=== PATIENT | female | born 1975 | race Caucasian/White ===

== ENCOUNTER 2022-07-12 12:37 | Inpatient (IN) | payer SELFPAY ==
[2022-07-06 14:37] LABS: Hematocrit 48.7 % (37-47); Hemoglobin 15.6 g/dL (12.0-15.0); Mean Corpuscular Hgb 29.7 pg (27.0-32.0); Mean Corpuscular Volume 92.6 fL (81-99); Mean Platelet Vol. 9.5 fl (6.2-12.0); Platelet Count 322 K/mm3 (150-450); RBC Distribution Width CV 13.6 % (11.6-14.6); RBC Distribution Width SD 46.2 fl (35.1-43.9); Red Blood Count 5.26 M/mm3 (4.2-5.4); White Blood Count 8.1 K/mm3 (4.4-11.0)
[2022-07-06 15:00] LABS: Magnesium 1.9 mg/dL (1.6-2.6)
[2022-07-12] VITALS (16 sets, daily range): BP systolic 106–127; BP diastolic 58–84; PULSE 57–95; RESP 14–18; TEMP 36.1–37.2; O2SAT 95–100; BMI 24.5
[2022-07-12 06:03] LABS: Internal QC Validated? YES +Cl - CLEAR BKGD; Pregnancy, Urine Negative Negative
[2022-07-12] MEDS: Lactated Ringers 1,000 ML 40 ML IV (06:17)
[2022-07-12] MEDS: Gabapentin 600 MG Tablet PO (06:17)
[2022-07-12] MEDS: Magnesium 2 GM for ERAS IV (06:17)
[2022-07-12] MEDS: Acetaminophen 500 MG Tablet 1000 MG PO ×3 (06:18→17:49)
--- NOTE | 2022-07-12 06:34 | HP.PCM.OB_ITS ---
History and Physical Date of Admission: 07/12/22 Chief complaint: Leiomyomas History present illness: 47-year-old arrives for total abdominal hysterectomy bilateral salpingectomy for leiomyomas. No medical changes since last seen. All questions answered and consent signed. Obstetric history: G7, P3 with a history of 3 sections Past medical history: None Medications: None Allergies: No known drug allergies Past surgical history: section x3 Social history: Denies smoking, alcohol use, drug use Family history: Denies history DVT or PE Review of systems: Besides above pertinent positives a full review of systems was performed and found to be negative Physical exam: Vitals: Blood pressure 113/69 pulse 73 respiratory rate 16 temperature 97.3 ?F SPO2 100% on room air General: Normal-appearing no acute distress HEENT: Normocephalic/atraumatic no cervical lymphadenopathy Cardiac/respiratory: No use of accessory muscles, nonlabored breathing Abdomen: Soft, nontender, nondistended Extremities: No peripheral edema normal peripheral pulses Psych: Normal affect normal demeanor nonpressured speech Labs: Urine test negative Assessment plan: 47-year-old scheduled for total abdominal hysterectomy bilateral salpingectomy for leiomyomas. Patient understands risk of the procedure include but are not l imited to visceral or vascular injury, prolonged hospitalization, blood loss need for transfusion, reoperation. Patient understands increased risk with larger abdominal incision. Patient states understanding and wishes to proceed. All questions were answered and consent was signed.
[2022-07-12] MEDS: Insulin Lispro 100 UNIT/ML INSULN.PEN SC (06:43)
[2022-07-12 06:56] LABS: Bedside Glucose 233 mg/dL (74-106)
[2022-07-12] MEDS: Ondansetron 4 MG/2 ML Vial IV (07:30)
--- NOTE | 2022-07-12 07:30 | HYST_PTH ---
PATIENT: ADOLPH JANE LOC: [facility] U#:[id number] AGE/SX: 47/F ROOM: [facility] RE07/12/[address]: Dr. Dino Jane MD : 1975 BED: 1 DIS: 07/13/2022 SPEC #: [id number] RECD: 07/12/22 09:45 STATUS: WILL REQ #: [id number] LUPE: 07/12/22 07:[address]: Dino Jane DEPT: SURGICAL PATHOLOGY RECD BY: Sheridan Rosas ENTERED: 07/12/22 10:05 SP TYPE: HYSTERECT OTHR DR: Dr. Jaen Claude Hooker MD Tissues: Uterus, NOS Procedures: Surgery Specimen Level V HEADER OPERATION: ERAS, hysterectomy, MARGARET, salpingectomy PRE-OP DIAGNOSIS: Abnormal uterine bleeding, fibroids TISSUE SUBMITTED: Uterus and bilateral fallopian tubes MICROSCOPIC DIAGNOSIS Uterus, hysterectomy: Cervix ? nabothian cysts and mild chronic inflammation. Endometrium ? proliferative endometrium. Myometrium ? leiomyoma with degenerative change and focal acute inflammation. Ovary ? corpora albicantia. Fallopian tubes ? complete cross-sections of fallopian tubes. One fallopian tube with benign paratubal cysts. AM:adalid 07/13/2022 COMMENT Fallopian tubes have no pathologic change. MICROSCOPIC DESCRIPTION Slides are reviewed. GROSS DESCRIPTION Received in fixative is one container labeled with the patient's name and designated uterus. The specimen consists of a uterus received in two fragments. The presumed cervical portion measures 3.8 cm in length and 2.5 cm in diameter. The largest fragment measures 20.0 x 19.0 x 13.5 cm and weighs 2380 gm. Present free in the container is a fallopian tube with normal fimbriated end measuring 8.0 cm in length and 0.5 cm in diameter. A similar fallopian tube measuring 5.0 cm in length and 0.6 cm is also present in the container adjacent to the fimbrial end of this fallopian tube is a smooth, glistening cyst measuring 2.5 cm and containing clear fluid. The fallopian tubes are not designated. Serial sections reveal a lobulated white-collado, rubbery mass measuring 17.0 x 13.0 x 11.0 cm. Serial sections of this mass reveals rubbery cut surfaces in which there are foci of softening and hemorrhage. The endometrial cavity measures 4.0 x 3.0 cm and is triangular in appearance. The reddish-collado endometrium measures up to 0.1 cm in greatest dimension. The myometrium without mass measures up to 2.0 cm in average thickness. Attached to the uterus is a smooth, glistening, pink-yellow ovary measuring 2.8 x 1.0 x 1.0 cm. Serial sections do not reveal mass lesions. Video Technician sections are submitted in 12 cassettes as follows: 1 - cervix and endocervix, 2 - one fallopian tube, 3 - the other fallopian tube with paratubal cyst, 4??ovary, 5-7 - endometrium and adjacent myometrium, 8-12 - client relations representative sections of myometrial mass. / AM:adalid 07/12/2022 TC:1 CPT: 89881
[2022-07-12] MEDS: Cefazolin 2 GM in 0.9% Normal Saline 100 ML IV (07:38)
--- NOTE | 2022-07-12 09:49 | DCINST_ITS ---
Discharge Instructions Diet Discharge Diet: No restrictions Activity Discharge Activity: Return to Normal Activity, May Drive, May Shower and - (No tub baths for 2 weeks) May resume sexual activity in: 6-8 weeks Lifting Restrictions: No lifting over 25 pounds for 3 weeks Dressing / Incision Call your doctor if your incision/area has: Continuous Slow Oozing and Foul Smelling Discharge Call your doctor if you observe: Fever of 101 or Higher, Shortness of breath and Chest pain Follow Up Care Please Follow Up With: Dino Garvin MD When: 5 to 7 days postoperatively Test Results: Test results from this visit will be discussed in further detail at your follow- up appointment, if applicable. Discharge Plan Admission Attending Provider: Dino Garvin Primary Care Provider: Jean Claude Hooker Discharge Orders/Prescriptions Prescriptions: No Action Plexus 1 packet PO/SL DAILY Plexus Probiotic 1 cap PO/SL DAILY Super Food 1 packet PO/SL 1200 Referrals / Follow Up: Jean Claude Hooker MD [Primary Care Provider] - Disposition Disposition (needs filled in before D/C Order can be placed): Home, Self Care
--- NOTE | 2022-07-12 09:50 | PCM.OPRPT ---
Report of Operation Date of Procedure: 07/12/22 Pre-Operative Diagnosis: Leiomyoma Post-Operative Diagnosis: Leiomyoma Surgery/Procedure Performed:: Total abdominal hysterectomy right salpingo-oophorectomy left salpingectomy Description of Surgical Findings:: Surgeon: Dino Garvin MD Anesthesia: General EBL: 50 cc Urine output: 300 cc IV fluids: 1200 cc Complications: None Specimen: Cervix, uterus, bilateral fallopian tubes, right ovary Findings: Fibroid uterus with uterus up to xiphoid weighing greater than 2300 g. Right ovary severely adhesed and attached to fundus of uterus could not be dissected, right oophorectomy performed because of this. Otherwise normal left ovary. Bilateral fallopian tubes within normal limits. Cervix within normal limits. Floseal placed over colpotomy. Consent: Patient with leiomyoma elects for total abdominal hysterectomy bilateral salpingectomy with discussion that operative findings can be different from ultrasound findings. Patient understands risk of the procedure include but are not limited to visceral or vascular injury, prolonged hospitalization, blood loss need for transfusion, reoperation. Patient state understanding wish to proceed. All questions were answered and consent was signed. Procedure: Patient was brought back to the OR where general anesthesia was found to be adequate. 2 g of Ancef were given for infection prophylaxis patient was prepared and draped in a supine position. Vertical midline incision was made. Fascia was excised with a scalpel and undermined with hemostat. Rectus muscle was dissected at the midline, peritoneum was grasped with hemostats and entered sharply. Peritoneum dissected vertically with a Bovie. Above findings were noted. Uterus was exteriorized from abdomen. Bilateral ureters were visualized and palpated to be out of the operative field. Right round ligament was identified suture-ligated cut and cauterized with the Bovie. Anterior and posterior portions of the broad ligament were dissected. Bladder flap was developed. As noted above right ovary and fallopian tube severely adhesed to uterine fundus. Oophorectomy was necessary. IP ligament was identified, window was opened and IP ligament was cut and cauterized with LigaSure device. Good hemostasis was noted. Right uterine vessels were skeletonized cut and cauterized with the LigaSure device, lateralized beyond the level the operative field. Left round ligament was identified cut and cauterized, anterior and posterior portions of broad ligament were dissected. Bladder flap was fully developed beyond the level of cervix. Left fallopian tube was identified to the fimbria and the mesosalpinx was cut and cauterized with LigaSure device, fallopian tube was transected at the cornua and sent to pathology. Left utero-ovarian ligament was identified cut and cauterized with a LigaSure device. Left uterine vessels were skeletonized cut and cauterized, lateralized beyond the level of the operative field. Right ankle Zeppelin's were placed just inferior to the cervix. Using Halina scissors colpotomy was made and uterus was transected just inferior to the cervix. Uterus and cervix sent to pathology with right ovary and right fallopian tube. Good hemostasis was noted. Using 0 Vicryl suture Chrystal suture ligation was performed at bilateral sites of right angle Zeppelin's. Good hemostasis was noted. Using 2 Allis clamps the anterior and posterior portion of the vagina were identified and using [id number] 0 Vicryl suture the colpotomy was reapproximated. Good hemostasis was noted. Abdominal irrigation was performed and good hemostasis was noted. Floseal was placed over the colpotomy and the dissection. Incision was reinspected and surgical site was reinspected good hemostasis was noted. Peritoneum was reapproximated with Vicryl suture in a continuous running fashion. Fascia was reapproximated with double loop PDS suture in a modified Smead Caceres closure. Subcutaneous irrigation was performed, good hemostasis was noted. Skin was reapproximated with michelle. Good hemostasis was noted all counts were correct x2. Patient tolerated procedure well and was brought to recovery in stable condition. director of community services: Marissa Garvin
[2022-07-12 10:45] LABS: Bedside Glucose 107 mg/dL (74-106)
[2022-07-12] MEDS: Ketorolac 30 MG/ML Syringe IV ×2 (14:45→20:20)
[2022-07-12] MEDS: 0.9% Saline Lock 10 ML Syringe IV ×2 (14:46→20:20)
--- NOTE | 2022-07-12 16:05 | CASEMGMT ---
RN?CM?ESCORT CAR DRIVER?CM?to room to meet with patient for initial transition planning/care coordination?assessment.?RN?CM?introduced self and role at [facility].? Pt voices understanding and consents to?assessment?at this time.? Pt resting in bed in no distress at this time.? @ bedside. Pt is A/O at this time and answers all questions appropriately.?? Care providers, pharmacy, and demographics verified/updated at this time. PCP: Dr Hooker Specialists: Dr Dino Garvin-USER EXPERIENCE DESIGNER Preferred Pharmacy: [facility] Retail Insurance: No insurance. [facility] Package Plan for this admission Prescription Benefit:?none Living Will/HPOA:?Pt does not currently have LW/HCPOA and declines info at this time.? LNOK: , Dennys. 2 adult children Living Arrangements: Lives w/, 2 adult children, and 2 children under age 18. Independent. Transportation:?Pt and both drive. DME: ? Denies using any DME and no needs identified. HHC/SNF: No hx of either. No needs identified. Pt wishes to return home and states has no concerns with going home at time of discharge.?CM?to follow for any discharge planning/needs.? Pt voices no concerns/needs at this time.? Advised pt to ask for?CM?if any questions/concerns/needs arise.? Voices understanding. PLAN:??Home. Agustín RENEEN?RN?CM
[2022-07-12] MEDS: Ondansetron ODT 4 MG Tablet PO (16:46)
[2022-07-12] MEDS: proCHLORPERazine 10 MG/2 ML Vial 5 MG IV (20:20)
[2022-07-12] MEDS: Docusate Sodium 100 MG Capsule PO (21:50)
[2022-07-13 03:34] VITALS: BP 131/72; PULSE 80; RESP 18; TEMP 37.1; O2SAT 98
[2022-07-13] MEDS: 0.9% Saline Lock 10 ML Syringe IV ×2 (03:36→10:05)
[2022-07-13] MEDS: Ketorolac 30 MG/ML Syringe IV ×2 (03:36→10:05)
[2022-07-13 06:42] LABS: Hemoglobin 14.2 g/dL (12.0-15.0); Mean Corpuscular Hgb 30.5 pg (27.0-32.0); Mean Corpuscular Volume 92.3 fL (81-99); Mean Platelet Vol. 9.3 fl (6.2-12.0); Platelet Count 244 K/mm3 (150-450); RBC Distribution Width CV 14.1 % (11.6-14.6); RBC Distribution Width SD 47.7 fl (35.1-43.9); Red Blood Count 4.66 M/mm3 (4.2-5.4)
[2022-07-13 07:45] VITALS: O2SAT 95
--- NOTE | 2022-07-13 08:07 | PCM.PN.OB ---
Subjective Subjective No overnight complaints. Voiding spontaneously. Tolerating diet. Ambulating Objective Data Objective Data Vital Signs: Vital Signs Temp Pulse Resp BP Pulse Ox O2 Del Method O2 Flow Rate 98.8 F 80 18 131/72 H 98 Room Air 4 07/13/22 03:34 07/13/22 03:34 07/13/22 03:34 07/13/22 03:34 07/13/22 03:34 07/13/22 03:34 07/12/22 11:45 Oxygen Flow Rate (L/min) 4 Oxygen Delivery Method Room Air Weight: 134 lb 7.712 oz Body Mass Index (BMI) 24.5 Intake & Output: Intake and Output for Last 24 Hours 07/11/22 07/12/22 07/13/22 23:59 23:59 23:59 Intake Total 6 / 6 486.67 / 486.67 Output Total 895 / 895 700 / 700 Balance 1141 / 1141 -213.33 / -213.33 Lab / Micro Data Result Diagrams: 07/13/22 06:19 Labs: Laboratory Results - last 24 hr 07/12/22 10:19: POC Glucose 107 H 07/13/22 06:19: WBC 12.0 H, RBC 4.66, Hgb 14.2, Hct 43.0, MCV 92.3, MCH 30.5, MCHC 33.0, RDW Std Deviation 47.7 H, RDW Coeff of Jamin 14.1, Plt Count 244, MPV 9.3 Physical Exam Const alert, oriented x3, no apparent distress, average body habitus, healthy appearing and well nourished HEENT normocephalic and moist oral mucous membranes Eyes PERRL Neck full ROM Resp normal respiratory effort, no retractions and no use of accessory muscles GI GI Narrative: Soft, nontender, incision clean dry and intact, nondistended Extremity normal to inspection and full ROM Neuro moves all extremities and no focal motor deficits Psych mental status grossly normal, affect normal, speech normal and activity/motor behavior normal Assessment & Plan (1) Acute postoperative pain: PLAN: Postop day 1 status post total abdominal hysterectomy bilateral salpingectomy right oophorectomy via vertical midline incision. Overall patient's pain well controlled. Voiding spontaneously. Ambulating. Tolerating diet. Okay to discharge home today. Educated patient on home-going restrictions and instructions. Discussed on follow-up for staple removal. All questions answered
[2022-07-13 08:36] VITALS: BP 132/75; PULSE 71; RESP 16; TEMP 36.5; O2SAT 100
[2022-07-13] MEDS: Acetaminophen 500 MG Tablet 1000 MG PO (08:46)
--- NOTE | 2022-07-13 09:51 | PHA.DC.MC ---
Pharmacy Service has performed discharge medication reconciliation and counseling for this patient. 1. OXYCODONE 5MG PO Q6H PRN PAIN 7-10 The patient's discharge medication list was reviewed for discrepancies and discrepancies were resolved. Home Medications Plexus 1 packet PO/SL DAILY 07/01/22 Plexus Probiotic 1 cap PO/SL DAILY 07/01/22 Super Food 1 packet PO/SL 1200 07/01/22 oxycodone 5 mg tablet 5 mg PO Q6H PRN PRN Pain Score 7-10/10 6 days #24 tabs 07/12/22 The patient was counseled on the following discharge medications and changes in medications for homegoing were reviewed. The Reason for Use, instructions for use, and potential side effects were reviewed for all new medications. The patient's questions regarding all of their medications were answered. The patient was able to verbally demonstrate an understanding of their discharge medications.
[2022-07-13 10:05] VITALS: BP 128/71; PULSE 75; RESP 16; TEMP 36.6; O2SAT 98
== END 2022-07-13 10:23 | disposition home or self-care (01) | DRG 743 ==
LOC: SDC 14:21 → MS3 14:21
PROVIDERS: Anesthesiology; Admitting Provider Obstetrics & Gynecology; PCP Family Medicine; Referring Provider Obstetrics & Gynecology; Visit Provider Obstetrics & Gynecology
PROC: 0UT90ZZ Resection of Uterus, Open Approach (ICD-10-PCS; CPT 58150; principal; 2022-07-12 07:10)
DX: D25.9 Leiomyoma of uterus, unspecified (principal); N83.291 Other ovarian cyst, right side; N88.8 Other specified noninflammatory disorders of cervix uteri; N83.8 Other noninflammatory disorders of ovary, fallopian tube and broad ligament
CPT/HCPCS: 36415; 81025; 82962; 83036; 83735; 85027; 86850; 86900; 86901; 88307; J7120; A4216; J2405